=== PATIENT | male | born 1955 | race Caucasian/White ===

== ENCOUNTER 2016-10-30 10:29 | Emergency (ER) | payer BC, OTHER ==
[~2016-10-30] VITALS: Ht 180.3 cm; Wt 110.0 kg
[~2016-10-30 10:29] MED LIST: ASPI81TA3 PO; BENA40TA54 PO; CIPR500T4 PO; METF500T4 PO
[2016-10-30 10:30] VITALS: Ht 180.3 cm; Wt 110.0 kg
--- NOTE | 2016-10-30 10:51 | ERD ---
ER Documentation Chief Complaint Date/Time DATE: 10/30/16 TIME: 10:49 Chief Complaint HEMATURIA INTERMITTENT X 2 MOS, WORSEN LAST NIGHT, HX CA PROSTATE 17 YEARS HPI Patient is a 61-year-old male has a history of hypertension, diabetes, and prostate cancer complaining of hematuria that began 3 days ago but got worse last night. He denies any pain. He denies any dysuria but does admit to increased urinary frequency. Denies any fever. Denies any chest pain or shortness of breath. Denies any nausea, vomiting, or diarrhea. Denies flank pain. ROS All systems reviewed and are negative except as per history of present illness. Medications Home Meds Reported Medications Ciprofloxacin Hcl* (Ciprofloxacin Hcl*) 500 Mg Tablet, 500 MG PO QID 04/06/13 Benazepril Hcl* (Lotensin*) 40 Mg Tablet, 20 MG PO DAILY 04/06/13 Aspirin (Aspirin) 81 Mg Chew, 81 MG PO DAILY 11/03/12 Metformin Hcl* (Metformin Hcl*) 500 Mg Tablet, 800 MG PO BID 11/03/12 Allergies Allergies: Coded Allergies: No Known Allergy (Verified , 11/03/12) PMhx/Soc History of Surgery: Yes (LT WRIST FX SX;PROSTATE REMOVAL (17 year hace)) Anesthesia Reaction: No Hx Neurological Disorder: No Hx Respiratory Disorders: No Hx Cardiac Disorders: Yes (HTN) Hx Psychiatric Problems: No Hx Miscellaneous Medical Probl: Yes (DM, prostate cancer) Hx Alcohol Use: No Hx Substance Use: No Hx Tobacco Use: No Smoking Status: Never smoker FmHx Family History: diabetes Physical Exam Vitals Vital Signs Date Time Temp Pulse Resp B/P Pulse Ox O2 Delivery O2 Flow Rate FiO2 10/30/16 10:30 98.1 70 20 160/88 99 Physical Exam INITIAL VITAL SIGNS: Reviewed by me GENERAL: Awake, alert and oriented x 4, well appearing, nontoxic, speaking in full sentences. No acute distress HEAD: Atraumatic NECK: Supple. No masses. Full range of motion. No meningismus. No midline tenderness. RESPIRATORY: Clear to auscultation bilaterally. Symmetric chest wall rise. No wheezing or rales. No accessory muscle use. CV: Regular rate and rhythm. No murmurs, rubs, or gallops. ABDOMEN: Soft, non-distended. Nontender. Negative Manson. Negative McBurneys point tenderness. No CVA tenderness bilaterally. No guarding. No rebound. : Deffered. EXTREMITIES: No clubbing or cyanosis. No edema. Moving all extremities normally. BACK: No midline tenderness to palpation. No step-offs. Result Diagram: 10/30/16 1100 10/30/16 1100 Results 24 hrs Laboratory Tests Test 10/30/16 10:52 10/30/16 11:00 Urine Color YELLOW Urine Clarity SLIGHTLY CLOUDY Urine pH 6.0 Urine Specific Brandon 1.018 Urine Ketones NEGATIVEmg/dL Urine Nitrite NEGATIVEmg/dL Urine Bilirubin NEGATIVEmg/dL Urine Urobilinogen NEGATIVEmg/dL Urine Leukocyte Esterase NEGATIVELeu/ul Urine Microscopic RBC > 182/HPF Urine Microscopic WBC 0/HPF Urine Hemoglobin 3+mg/dL Urine Glucose NEGATIVEmg/dL Urine Total Protein 2+mg/dl White Blood Count 8.210^3/ul Red Blood Count 5.2410^6/ul Hemoglobin 15.6g/dl Hematocrit 45.4% Mean Corpuscular Volume 86.6fl Mean Corpuscular Hemoglobin 29.8pg Mean Corpuscular Hemoglobin Concent 34.4g/dl Red Cell Distribution Width 13.1% Platelet Count 86400^3/UL Mean Platelet Volume 9.0fl Neutrophils % 56.4% Lymphocytes % 33.7% Monocytes % 7.0% Eosinophils % 2.1% Basophils % 0.6% Nucleated Red Blood Cells % 0.0/100WBC Neutrophils # 4.610^3/ul Lymphocytes # 2.810^3/ul Monocytes # 0.610^3/ul Eosinophils # 0.210^3/ul Basophils # 0.110^3/ul Nucleated Red Blood Cells # 0.010^3/ul Prothrombin Time 12.9Sec Prothrombin Time Ratio 1.0 INR International Normalized Ratio 0.97 Activated Partial Thromboplast Time 27.0Sec Sodium Level 146mmol/L Potassium Level 4.3mmol/L Chloride Level 102mmol/L Carbon Dioxide Level 28mmol/L Anion Gap 20 Blood Urea Nitrogen 13mg/dl Creatinine 0.67mg/dl Glucose Level 127mg/dl Calcium Level 9.8mg/dl Total Bilirubin 0.5mg/dl Direct Bilirubin 0.00mg/dl Indirect Bilirubin 0.5mg/dl Aspartate Amino Transf (AST/SGOT) 28IU/L Alanine Aminotransferase (ALT/SGPT) 51IU/L Alkaline Phosphatase 89IU/L Total Protein 7.5g/dl Albumin 4.6g/dl Globulin 2.90g/dl Albumin/Globulin Ratio 1.58 Lipase 171U/L Procedures/MDM 61-year-old male presents with gross hematuria. He has history of diabetes, hypertension, and prostate cancer. He has no pain. His blood pressure is elevated 160/88 otherwise his vital signs are within normal limits. His physical exam is normal he has no tenderness throughout his abdomen and no CVA tenderness. I reviewed the case with Dr. Vegas who recommended blood work. Laboratory analysis shows no evidence of acute emergent abnormality. No evidence of significant leukocytosis suggesting systemic infection or severe anemia. No evidence of acute renal or liver failure, no evidence of severe alkalosis or acidosis. Patient was given copies of all of his labs we can follow-up with primary care. Patient counseled regarding my diagnostic impression and care plan. Prior to discharge all questions answered. Pt agrees with treatment plan and understands strict return precautions. Pt is instructed to follow up with primary care provider within 24-48 hours. Precautionary instructions provided including instructions to return to the ER if not improving or for any worsening or changing symptoms or concerns. Departure Diagnosis: Primary Impression: Diabetes Additional Impressions: HTN (hypertension) Hematuria Condition: Stable AZEB OLIVO PA-C Oct 30, 2016 10:50
[2016-10-30 11:14] LABS: BASOPHIL # 0.1 10^3/ul (0.0-0.1); BASOPHILS % 0.6 % (0.0-2.0); EOSINOPHILS # 0.2 10^3/ul (0.0-0.5); EOSINOPHILS % 2.1 % (0.0-7.0); HEMATOCRIT 45.4 % (42.0-52.0); HEMOGLOBIN 15.6 g/dl (14.0-18.0); LYMPHOCYTES # 2.8 10^3/ul (0.8-2.9); LYMPHOCYTES % 33.7 % (15.0-51.0); MEAN CORPUSCULAR HEMOGLOBIN 29.8 pg (29.0-33.0); MEAN CORPUSCULAR HGB CONC 34.4 g/dl (32.0-37.0); MEAN CORPUSCULAR VOLUME 86.6 fl (82.0-101.0); MONOCYTE # 0.6 10^3/ul (0.3-0.9); NEUTROPHIL # 4.6 10^3/ul (1.6-7.5); NEUTROPHILS % 56.4 % (39.0-77.0); PLATELET COUNT 302 10^3/UL (140-415); RED BLOOD COUNT 5.24 10^6/ul (4.70-6.10); RED CELL DISTRIBUTION WIDTH 13.1 % (11.5-14.5); WHITE BLOOD COUNT 8.2 10^3/ul (4.8-10.8)
[2016-10-30 11:33] LABS: ALBUMIN 4.6 g/dl (3.3-4.9); ALBUMIN/GLOBULIN RATIO 1.58; BILIRUBIN,INDIRECT 0.5 mg/dl (0-1.1); BILIRUBIN,TOTAL 0.5 mg/dl (0.2-1.3); CALCIUM 9.8 mg/dl (8.4-10.2); CREATININE 0.67 mg/dl (0.61-1.24); POTASSIUM 4.3 mmol/L (3.5-5.1); TOTAL PROTEIN 7.5 g/dl (6.1-8.1)
[2016-10-30 11:43] LABS: INR 0.97; PROTIME 12.9 Sec (12.2-14.2)
[2016-10-30 12:05] LABS: ADD UMIC YES; UR ASCORBIC ACID NEGATIVE (NEGATIVE); UR BILIRUBIN (Dip) NEGATIVE (NEGATIVE); UR BLOOD (Dip) 3+ mg/dL (NEGATIVE); UR CLARITY SLIGHTLY CLOUDY (CLEAR); UR COLOR YELLOW (YELLOW); UR GLUCOSE (Dip) NEGATIVE (NEGATIVE); UR KETONES (Dip) NEGATIVE (NEGATIVE); UR LEUKOCYTE ESTERASE (Dip) NEGATIVE Leu/ul (NEGATIVE); UR NITRITE (Dip) NEGATIVE (NEGATIVE); UR RBC > 182 /HPF (0-5); UR SPECIFIC GRAVITY (Dip) 1.018 (1.003-1.030); UR TOTAL PROTEIN (Dip) 2+ mg/dl (NEGATIVE); UR UROBILINOGEN (Dip) NEGATIVE (NEGATIVE)
== END 2016-10-30 13:29 | disposition home or self-care (01) ==
LOC: EEVIPCON 10:29 → FTE 10:29
DX: E11.9 Type 2 diabetes mellitus without complications (principal); I10 Essential (primary) hypertension; Z79.82 Long term (current) use of aspirin; Z79.84 Long term (current) use of oral hypoglycemic drugs; Z85.46 Personal history of malignant neoplasm of prostate
CPT/HCPCS: 36415; 80053; 81001; 83690; 85025; 85610; 85730; Z7502

== ENCOUNTER 2017-06-04 00:15 | Emergency (ER) | END 2017-06-04 03:20 | disposition home or self-care (01) ==

== ENCOUNTER 2017-10-12 09:59 | Day surgery (SDC) | END 2017-10-12 15:30 | disposition home or self-care (01) ==

== ENCOUNTER 2017-11-02 15:00 | Inpatient (IN) | END 2017-11-04 17:15 | disposition home or self-care (01) | DRG 667 ==